=== PATIENT | male | born 1970 | race Caucasian/White ===

== ENCOUNTER 2017-05-12 14:23 | Emergency (ER) | payer BC | END 2017-05-12 17:20 | disposition home or self-care (01) | LOC: ER1 14:23 | DX: S02.2XXA Fracture of nasal bones, initial encounter for closed fracture (principal); S02.31XA Fracture of orbital floor, right side, initial encounter for closed fracture; S02.401A Maxillary fracture, unspecified side, initial encounter for closed fracture; S01.411A Laceration without foreign body of right cheek and temporomandibular area, initial encounter; W01.198A Fall on same level from slipping, tripping and stumbling with subsequent striking against other object, initial encounter | CPT/HCPCS: 12013; 70450; 70486; 72125; 90471; 90714; 96372; 96374; 99283; J0690; J2270; J2405; J7050 ==